=== PATIENT | male | born 1970 | race American Indian/Alaskan Native ===

== ENCOUNTER 2017-04-02 12:07 | Outpatient (CLI) | payer MEDICARE ==
--- NOTE | 2017-04-02 13:06 | XRay Report ---
Left forearm, left wrist: AP and lateral views of the forearm in standard 3 views of the wrist are included. There is a plaster cast extending from the proximal forearm to at least the mid hand. Proximal and mid forearm is unremarkable. There is a comminuted fracture of the distal radius with minimal fragment separation and there is good alignment. The radiocarpal joints are aligned. No carpal injury identified. Impressions: Distal radius fracture. The age appears recent with only minimal internal callus formation suspected.
== END 2017-04-02 12:08 | disposition home or self-care (01) ==
LOC: SPVIMAG 12:07
PROVIDERS: ATTEND Orthopaedic Surgery
DX: S52.592A Other fractures of lower end of left radius, initial encounter for closed fracture (principal); X58.XXXA Exposure to other specified factors, initial encounter; Y93.89 Activity, other specified; Y92.89 Other specified places as the place of occurrence of the external cause; Y99.8 Other external cause status

== ENCOUNTER 2017-04-23 10:24 | Outpatient (CLI) | payer MEDICARE ==
--- NOTE | 2017-04-23 10:59 | XRay Report ---
LEFT WRIST RADIOGRAPHS INDICATION: Left wrist pain. COMPARISON: 04/02/2017. FINDINGS: AP, lateral and oblique left wrist radiographs now limited due to overlying cast, though distal radial fracture lines visible. Alignment fairly preserved. Few surgical clips lateral to the distal radius again noted. CONCLUSION: Left distal radius fracture and adjacent surgical clips again noted with intact alignment. Please correlate. Thank you for the opportunity to participate in this patient's care.
== END 2017-04-23 10:25 | disposition home or self-care (01) ==
LOC: SPVIMAG 10:24
PROVIDERS: ATTEND Orthopaedic Surgery
DX: M25.532 Pain in left wrist (principal); S52.502D Unspecified fracture of the lower end of left radius, subsequent encounter for closed fracture with routine healing; X58.XXXD Exposure to other specified factors, subsequent encounter